=== PATIENT | male | born 1965 | race Caucasian/White ===

== ENCOUNTER 2016-09-22 17:00 | Observation (INO) | payer BC ==
[2016-09-22] MEDS ORDERED: Aspirin Low Dose CHEW TAB* 81 MG PO ONE (18:21)
[2016-09-22 18:31] LABS: Hematocrit 38 % (42-52); Hemoglobin 13.2 g/dl (14.0-18.0); Mean Corpuscular HGB Conc 35 g/dl (31-36); Mean Corpuscular Hemoglobin 35 pg (27-31); Mean Corpuscular Volume 99 fL (80-94); Mean Platelet Volume 8 um3 (7.4-10.4); Red Blood Count 3.82 10^6/ul (4.0-5.4); Red Cell Distribution Width 14 % (10.5-15); White Blood Count 4.5 10^3/ul (3.5-10.8)
[2016-09-22 18:47] LABS: Albumin 4.2 g/dL (3.2-5.2); BUN/Creatinine Ratio 15.6 (8-20); EGFR African American 106.2 (>60); EGFR Non-African American 82.6 (>60); Globulin 2.5 g/dL (2-4); Magnesium 2.2 mg/dL (1.9-2.7); Potassium 3.4 mmol/L (3.5-5.0); Total Bilirubin 0.5 mg/dL (0.2-1.0); Total Protein 6.7 g/dL (6.4-8.9)
--- NOTE | 2016-09-22 19:27 | RAD ---
Indication: Central chest pain since Thursday. Comparison: None. Technique: Upright AP 1918 hours Report: Accounting for superimposed soft tissues and normal bronchovascular markings the lungs and pleural spaces are clear. Negative for pneumothorax. The heart, pulmonary vasculature, and mediastinal contours are unremarkable. IMPRESSION: No evidence for acute intrathoracic disease.
[2016-09-22] MEDS ORDERED: Iohexol 350* (CONTRAST) 500 ML MDV IV ONE (19:28)
--- NOTE | 2016-09-22 20:28 | RAD ---
INDICATION: Chest pain. Pain started Thursday while hiking. COMPARISON: Chest radiograph of the same date. TECHNIQUE: Multidetector CT images were obtained from the lung apices to the upper abdomen with 74 mL Omnipaque 350 IV contrast. Pulmonary angiogram protocol. Multiplanar reformation including with maximum intensity projection. REPORT: Aside from minimal dependent atelectasis the lungs and pleural spaces are clear. Negative for pneumothorax. Negative for thoracic lymphadenopathy. Negative for cardiomegaly or pericardial effusion. Upper normal diameter thoracic aorta. No evidence for dissection of the aorta. No filling defects are identified from the main to the subsegmental pulmonary arteries to indicate presence of a pulmonary embolism. Unremarkable Limited images through the upper abdomen. Negative for suspicious osseous lesions. IMPRESSION: No evidence for pulmonary embolism or other acute intrathoracic disease.
[2016-09-22] MEDS ORDERED: Nitroglycerin TAB 0.4 MG* 0.4 MG TAB SL ONE (21:33)
[2016-09-23] MEDS ORDERED: Acetaminophen TAB* 325 MG PO PRN (00:36)
[2016-09-23] MEDS ORDERED: HYDROmorphone INJ* 1 MG/ML CARPUJECT SYRINGE IV SLOW PU PRN (00:36)
--- NOTE | 2016-09-23 01:17 | HP ---
HISTORY AND PHYSICAL: DATE OF ADMISSION: 09/22/2016. CHIEF COMPLAINT: Chest pain. HISTORY OF PRESENT ILLNESS: The patient is a 51-year-old gentleman who hikes regularly and says he was hiking up in the [place] today. Mid half way through, he started feeling mild chest pain. In the end, he came home early because of it and has still continued until later on that evening when it finally went away and he went to sleep. He woke the next day, and he is feeling fine and started to clean away [place] stuff when the pain came back. It stayed again until today, so he finally became concerned and came to the ER for further evaluation. At its worse, it was 5 to 6/10 in severity. It was initially right- sided, but then went to both sides of his chest and radiates to his back. It was much worse with inspiration with a deep breath. It was a pressure like pain. He had no nausea or vomiting with it. No increased shortness of breath. He had no recent upper respiratory infections. He did not work out or lifted heavy weights prior to this. PAST MEDICAL HISTORY: Significant for ulcerative colitis, hiatal hernia, right knee surgery on both knees, appendectomy, bilateral carpal tunnel, ulnar nerve release, and deviated septum repair. CURRENT MEDICATIONS: Include: 1. Flonase 2 sprays both nares daily. 2. Imuran 100 mg daily. 3. Omeprazole 20 mg twice daily. 4. Colazal 3 tabs twice daily. ALLERGIES: He has an allergy/adverse reaction to MORPHINE, which gives him a headache and LOPERAMIDE. FAMILY HISTORY: His mother is 73, alive and well. Father is alive at 74, had an IA at age 59 and has diabetes, sister at 52, brother at 53, he has ulcerative colitis. Sister at 52 is alive and well. SOCIAL HISTORY: No tobacco or alcohol on the weekends. No recreational drug. 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 he is with 2 children. REVIEW OF SYSTEMS: A 14-point review of systems completed with the patient. All pertinent positives and negatives are in the history of present illness, otherwise it is negative. PHYSICAL EXAMINATION GENERAL: A pleasant gentleman, lying in bed, in no acute distress. VITAL SIGNS: Blood pressure 129/76, pulse ox 96%, respiratory rate 15 breaths per minute, heart rate 64 beats per minute, temperature is 98.3 degrees. HEENT: Normocephalic, atraumatic. Pupils equal, round and reactive to light. Moist mucous membranes. NECK: Supple. No JVD, bruits, palpable thyroid, or lymphadenopathy. CHEST: Clear to auscultation and percussion bilaterally. CARDIOVASCULAR: S1, S2 appreciated. Regular rate and rhythm. ABDOMEN: Positive bowel sounds in all 4 quadrants. Soft, nontender, nondistended. No hepatosplenomegaly. EXTREMITIES: No cyanosis, clubbing, or edema. +2 peripheral pulses bilaterally. NEUROLOGIC: Alert and oriented x3. Moves all extremities. SKIN: No rashes or abnormalities. LABORATORY DATA: White count 4.5, hemoglobin 13.2, hematocrit 38, platelets 159. Sodium is 135, potassium 3.4, chloride 104, CO2 26, BUN 15, creatinine 0.96 , glucose 141. First troponin 0.00, second one is 0.01. Chest x-ray was interpreted by Radiology as no evidence of acute intrathoracic disease. Chest CTA was interpreted by Radiology as no evidence for pulmonary embolism or acute intrathoracic disease. EKG shows sinus bradycardia at 58 beats a minute, normal axis, nonspecific ST-T wave changes. ASSESSMENT AND PLAN: 1. Chest pain, it does not sound cardiac, although he did say that nitroglycerin may have helped in the ER, certainly with his family history, warrants ruling him out and then doing a nuclear stress test if possible. The ER physician felt that he may have heard a murmur. I do not appreciate it, but I will get a transthoracic echo for completeness sake. We will also order a lipid profile. 2. Ulcerative colitis, stable. Continue with current regimen. 3. FEN. NPO after midnight. 4. DVT prophylaxis. Heparin subcu. 5. The patient is a full code. TIME SPENT: Over 75 minutes were spent on this H and P; more than 40 minutes of which is spent in direct [id number] contact with the patient in evaluation , physical exam, counseling, and coordination of care. CC: Malinda Ayers NP* [id number]/CPS #: [id number] MTDD
[2016-09-23] MEDS: Heparin VIAL(*) 5000 UNITS/ML VIAL (FIVE THOUSAND) SUBCUT SCH ×2 (06:02→13:54)
[2016-09-23 06:06] LABS: HDL Cholesterol 40.3 mg/dL
[2016-09-23] MEDS ORDERED: Omeprazole CAP* 20 MG PO SCH (07:30)
[2016-09-23] MEDS ORDERED: PTO: Balsalazide (NF) 750 MG CAP PO SCH (09:00)
[2016-09-23] MEDS ORDERED: azaTHIOprine TAB(*) 50 MG TAB PO SCH (09:00)
[2016-09-23] MEDS ORDERED: Fluticasone NASAL SPRAY 50MCG* 16 gm SPRAY BTL BOTH NARES SCH (09:00)
[2016-09-23 09:49] VITALS: BP 127/83
--- NOTE | 2016-09-23 12:42 | RAD ---
Edited for charges. INDICATION: Chest pain. COMPARISON: There are no prior studies available for comparison. Technique: A single day myocardial perfusion stress study was performed. Initially a resting study was performed. The patient was given an intravenous injection of 10.1 mCi of technetium 99m tetrofosmin and and the heart was imaged in multiple projections. The patient returned later in the day and under the direction of Dr. Ramirez, the patient was exercised to a peak heart rate of 170 beats per minute which was 101% of the maximum predicted heart rate. Subsequently the patient was given intravenous injection of 25.3 mCi of technetium 99m tetrofosmin and the heart was imaged in multiple projections. Images were reconstructed in the axial, sagittal and coronal planes and in a 3- D format. FINDINGS: There appears to be normal wall motion and myocardial thickening. The left ventricular ejection fraction was calculated to be 62%. Review of the images demonstrates mild decreased activity in the inferior wall on both the post pharmacologic stress and resting images which is no longer present on the attenuation corrected images and therefore most consistent with artifact. There is otherwise normal distribution of debris from cervical. IMPRESSION: NO EVIDENCE FOR INFARCT OR ISCHEMIA. ASSESSMENT: Low risk. Based on imaging criteria from ACC/AHA 2002 Guideline Update for the Management of Patients With Chronic Stable Angina Table 23. Noninvasive Risk Stratification. MTDD
--- NOTE | 2016-09-23 13:31 | ED ---
Lupe Barker Michael, scribed for Rogelio Spear MD on 09/22/16 at 1847 . HPI Chest Pain - HPI Summary HPI Summary: 51 y/o male comes to the ED presenting with intermittent episodes of pressure chest pain that started 2 days ago and radiates to his back. The pt reports that he hiked for 9 hours when the CP started. He notes that the CP started as mild and worsened throughout the day. The CP spontaneously alleviated one day ago until he exerted himself and the pain started again. Today, the pt states the CP has been constant and aggravated with deep breathes. He denies dizziness and taking medication for the CP. The PMHx is significant for colitis and hiatal hernia. The FHx is significant for [place]. - History of Current Complaint Chief Complaint: EDChestPainROMI Time Seen by Provider: 09/22/16 18:43 Hx Obtained From: Patient, Medical Records Onset/Duration: Started Days Ago, Still Present Timing: Intermittent Initial Severity: Mild Current Severity: Moderate Pain Intensity: 3 Pain Scale Used: 0-10 Numeric Chest Pain Radiates: Yes Chest Pain Radiates To:: Back Character: Pressure/Squeezing Aggravating Factor(s): Exertion, Deep Breaths Alleviating Factor(s): Spontaneous Resolution Associated Signs and Symptoms: Positive: Chest Pain, Back Pain. Negative: Dizziness - Allergy/Home Medications Allergies/Adverse Reactions: Allergies Allergy/AdvReac Type Severity Reaction Status Date / Time Loperamide [From Imodium] Allergy HIVES, N/V Verified 09/22/16 17:15 Morphine AdvReac Severe SEVERE Verified 09/22/16 17:15 HEADACHE PMH/Surg Hx/FS Hx/Imm Hx Previously Healthy: No - colitis Endocrine/Hematology History: Denies: Hx Diabetes, Hx Thyroid Disease Cardiovascular History: Denies: Hx Hypertension, Hx Pacemaker/ICD, Other Cardiovascular Problems/ Disorders Respiratory History: Reports: Hx Sleep Apnea - SLIGHT Denies: Hx Asthma, Hx Chronic Obstructive Pulmonary Disease (COPD) GI History: Reports: Hx Gastroesophageal Reflux Disease, Hx Hiatal Hernia, Hx Irritable Bowel, Other GI Disorders - ULCERATIVE COLITIS Denies: Hx Ulcer History: Denies: Hx Renal Disease Musculoskeletal History: Denies: Other Musculoskeletal History Sensory History: Reports: Hx Contacts or Glasses - CONTACTS, GLASSES Denies: Hx Hearing Aid Opthamlomology History: Reports: Hx Contacts or Glasses - CONTACTS, GLASSES Neurological History: Denies: Other Neuro Impairments/Disorders Psychiatric History: Denies: Hx Panic Disorder - Surgical History Surgery Procedure, Year, and Place: NERVE RELEASE BOTH ELBOWS, 2001, [place] CARPAL TUNNEL RELEASE BILATERALLY, 1999, [facility] RIGHT KNEE- ARTHROSCOPY-1982 TONSILLECTOMY , RIGHT KNEE, [facility] APPENDECTOMY, 2006, [facility]. DEVIATED SEPTUM 2013, [facility] Hx Anesthesia Reactions: Yes - NAUSEA WITH GENERAL Infectious Disease History: No Infectious Disease History: Denies: Hx Hepatitis, Hx Human Immunodeficiency Virus (HIV), History Other Infectious Disease, Traveled Outside the [place] in Last 30 Days - Family History Known Family History: Positive: Cardiac Disease - [place], Diabetes Family History: No family malignant hyperthermia or anesthesia reaction - Social History Occupation: Employed Full-time Lives: With Family Alcohol Use: Occasionally Alcohol Amount: 3-4 PER WEEK Substance Use Type: Reports: None Smoking Status (MU): Never Smoked Tobacco Have You Smoked in the Last Year: No Review of Systems Negative: Fever Positive: Chest Pain Positive: Other - back pain All Other Systems Reviewed And Are Negative: Yes Physical Exam Triage Information Reviewed: Yes Vital Signs On Initial Exam: Initial Vitals Temp Pulse Resp BP Pulse Ox 98.3 F 68 18 147/93 100 09/22/16 17:12 09/22/16 17:12 09/22/16 17:12 09/22/16 17:12 09/22/16 17:12 Vital Signs Reviewed: Yes Appearance: Positive: Well-Appearing, No Pain Distress Skin: Positive: Warm, Skin Color Reflects Adequate Perfusion, Dry Head/Face: Positive: Normal Head/Face Inspection Eyes: Positive: Normal ENT: Positive: Normal ENT inspection Neck: Positive: Supple, Nontender Respiratory/Lung Sounds: Positive: Clear to Auscultation, Breath Sounds Present Cardiovascular: Positive: Murmur - systolic ejection murmur that does not radiate to the carotids Abdomen Description: Positive: Nontender, Soft Bowel Sounds: Positive: Present Musculoskeletal: Positive: Normal Neurological: Positive: Normal Psychiatric: Positive: Normal, Affect/Mood Appropriate Diagnostics - Vital Signs Vital Signs Temp Pulse Resp BP Pulse Ox 09/22/16 18:30 73 20 157/75 97 09/22/16 18:06 16 137/84 09/22/16 18:00 11 09/22/16 17:12 98.3 F 68 18 147/93 100 - Laboratory Lab Results: Lab Results 09/22/16 09/22/16 Range/Units 18:04 18:04 WBC 4.5 (3.5-10.8) 10^3/ul RBC 3.82 L (4.0-5.4) 10^6/ul Hgb 13.2 L (14.0-18.0) g/dl Hct 38 L (42-52) % MCV 99 H (80-94) fL MCH 35 H (27-31) pg MCHC 35 (31-36) g/dl RDW 14 (10.5-15) % Plt Count 159 (150-450) 10^3/ul MPV 8 (7.4-10.4) um3 Neut % (Auto) 69.3 (38-83) % Lymph % (Auto) 21.6 L (25-47) % Craven % (Auto) 6.2 (1-9) % Eos % (Auto) 2.1 (0-6) % Baso % (Auto) 0.8 (0-2) % Absolute Neuts (auto) 3.1 (1.5-7.7) 10^3/ul Absolute Lymphs (auto) 1.0 (1.0-4.8) 10^3/ul Absolute Monos (auto) 0.3 (0-0.8) 10^3/ul Absolute Eos (auto) 0.1 (0-0.6) 10^3/ul Absolute Basos (auto) 0 (0-0.2) 10^3/ul Absolute Nucleated RBC 0.01 10^3/ul Nucleated RBC % 0.2 Lactic Acid 1.0 (0.5-2.0) mmol/L Result Diagrams: 09/22/16 18:04 09/22/16 18:04 Lab Statement: Any lab studies that have been ordered have been reviewed, and results considered in the medical decision making process. - Radiology CXR Xray Interpretation: No Acute Changes Radiology Interpretation Completed By: Radiologist - CT CTA Chest/Thorax CT Interpretation: No Acute Changes CT Interpretation Completed By: Radiologist - EKG EK EKG Rhythm: Sinus Rhythm - 61 bpm EKG Interpretation: no specific changes. lateral depression. EK EKG Interpretation: right sided precordial leads-negative for posterior [place] Chest Pain Course/Dx - Course Course Of Treatment: Thaddeus Patel presented with a C/O pleuritic chest pressure most of the day today with no He climbed three peakssymptoms. He had a similar pain two days ago which came on when he was hiking in the [place]. He climbed three peaks on Thursday including [place] in subzero weather. On ecg there was a suggestion of ST depression laterally and ST elevation in V1. Right sided leads were negative. He had a holosystolic murmur of which he was unaware. CTA was negative for PE (he has a hx of ulcerative colitis) or dissection. He has a positive family history of [place]. His EDACS score puts him at low risk for [place] but I am concerned secondary to his subtle ecg changes and new VALARIE. His pain was relieved completely here with a single NTG. - Diagnoses Provider Diagnoses: Chest pain - Provider Notifications Discussed Care Of Patient With: Dr. Oden - 2100, Dr. Kohler - 2104 Discharge - Discharge Plan Condition: Stable Disposition: ADMITTED TO [facility] Discharge Disposition Comment: Dr. Kohler accepts the pt as an admission The documentation as recorded by the Lupe castillo Michael accurately reflects the service I personally performed and the decisions made by me, Rogelio Spear MD.
--- NOTE | 2016-09-23 15:43 | ECHO ---
Patient: ALTA ORDONEZ [facility] Rec#: [id number] : 1965 Date: 09/23/2016 Age: 51y Height: 175 cm / 68.9 in Weight: 85 kg / 187.3 lbs Sex: M BSA: 2.01 Room#: 432 Admit Date#: 09/22/2016 Type: Inpatient Referring: Mateus Kohler MD Reading: Peter Brooks MD Rug Hooker: Colin Matthews RDCS Transthoracic Echocardiogram Indication: Murmur BP: 127/77 HR: 54 Rhythm: Heart Block Findings History: Chest,pain Technical Comments: The study quality is fair. Off axis images are noted making measurements unreliable Left Ventricle: The left ventricular chamber size is normal. Global left ventricular wall motion and contractility are within normal limits. There is normal left ventricular systolic function. The estimated ejection fraction is 55-60%. There is no consistent Doppler evidence of clinically significant diastolic dysfunction. Left Atrium: The left atrial chamber size is normal. Right Ventricle: The right ventricular cavity size is normal. The right ventricular global systolic function is normal. Right Atrium: The right atrial cavity size is normal. Aortic Valve: The aortic valve is trileaflet. There is no evidence of aortic regurgitation. There is no evidence of aortic stenosis. Mitral Valve: The mitral valve leaflets appear normal. There is no evidence of mitral regurgitation. There is no evidence of mitral stenosis. Tricuspid Valve: The tricuspid valve appears normal in structure and function. There is trace tricuspid regurgitation. No pulmonary hypertension is noted. Pulmonic Valve: The pulmonic valve appears normal. There is a trace pulmonic regurgitation. There is no pulmonic stenosis. Pericardium: There is no pericardial effusion. Aorta: There is mild dilatation of the ascending aorta. There is no dilatation of the aortic arch. There is mild dilatation of the aortic root. Pulmonary Artery: The main pulmonary artery appears normal. Venous: The inferior vena cava appears normal in size. There is a greater than 50% respiratory change in the inferior vena cava dimension. Conclusions The study quality is fair. Off axis images are noted making measurements unreliable Global left ventricular wall motion and contractility are within normal limits. There is normal left ventricular systolic function. The estimated ejection fraction is 55-60%. No significant valvular disease: There is trace tricuspid regurgitation. There is a trace pulmonic regurgitation. There is mild dilatation of the ascending aorta. There is mild dilatation of the aortic root. No reports of prior studies offered for comparison. Measurements Name Value Normal Range RVIDd (AP) 2D 2.1 cm (0.9 - 2.6) RVDdMajor (2D) 3.3 cm (2.2 - 4.4) RAd ISD 4CH 5.5 cm (3.4 - 4.9) RA (A4C)W 3.2 cm (2.9 - 4.6) IVSd (2D) 0.8 cm (0.6 - 1) LVPWd (2D) 1.2 cm (0.6 - 1) LVIDd (2D) 4.9 cm (3.6 - 5.4) LVIDs (2D) 3.3 cm - Aortic Annulus 1.9 cm (1.4 - 2.6) Ao root diameter (2D) 4 cm (2.1 - 3.5) Ascending Ao 4 cm (2.1 - 3.4) Aortic arch 2.5 cm (1.8 - 3.4) LA dimension (AP) 2D 2.8 cm (2.3 - 3.8) LAd ISD 4CH 5.3 cm (2.9 - 5.3) LA ISD 4CH W 3 cm (2.5 - 4.5) Name Value Normal Range LA ESV SP 4CH (A/L) 35 ml - LA ESV SP 2CH (A/L) 63 ml - LA ESV BP (A/L) 48 ml - LA ESV BP (A/L) index 23.81 ml/m2 - LA ESV SP 4CH (MOD) 35 ml - LA ESV SP 2CH (MOD) 59 ml - Name Value Normal Range MV E-wave Vmax 0.62 m/sec - MV deceleration time 123.98 msec - MV A-wave Vmax 0.5 m/sec - MV E:A ratio 1.24 ratio - Name Value Normal Range AV VTI 33.7 cm - LVOT diameter 2.24 cm - LVOT Vmax 1.13 m/sec - LVOT VTI 28.02 cm - LVOT peak gradient 5.07 mmHg - LVOT mean gradient 3.08 mmHg - SV LVOT 110.42 ml - Name Value Normal Range TR Vmax 1.7 m/sec - IVC diameter 2.1 cm - Name Value Normal Range PV Vmax 0.9 m/sec - PV peak gradient 3.22 mmHg -
--- NOTE | 2016-09-24 01:51 | DS ---
DISCHARGE SUMMARY: DATE OF ADMISSION: 09/23/16 DATE OF DISCHARGE: 09/23/16 PRIMARY CARE PROVIDER: Malinda Ayers NP DISCHARGE DIAGNOSIS: Pleuritic chest pain with negative CT angiogram of the chest for pulmonary embolism. The patient had cardiac stress test documented on 09/23/16 with the treadmill part showing "[address] depression in leads V3 to V5 at peak exercise, resolving by 2 minutes into recovery." The patient also had nuclear images that showed low risk and has showed no evidence for infarct or ischemia. LABORATORY DATA AND STUDIES: Performed during the hospital stay included troponins that were 0 throughout the patient's hospital stay. The patient's lipid profile showed triglycerides of 55, cholesterol total of 153, LDL of 102 and HDL of 40. MEDICATIONS AT DISCHARGE: Unchanged from admission and that includes: 1. Balsalazide 750 mg capsules 3 capsules p.o. b.i.d. 2. Fluticasone nasal spray 2 sprays both nostrils daily. 3. Omeprazole 20 mg b.i.d. 4. Imuran [address] angiogram obtained on 09/22/16, impression: "No evidence of pulmonary embolus or other acute intrathoracic disease." Nuclear medicine cardiac stress test obtained on 09/23/16, impression: "Review of the images demonstrates mild decreased activity in the inferior wall of both these post pharmacologic stress and resting images which is no longer present in the attenuation corrected images and therefore most consistent with an artifact. It is otherwise normal in distribution of the radiopharmaceutical. The EF was noted to be 62%. There was no evidence for infarct or ischemia." Once again, the patient's EKG portion of the treadmill stress test showed [address] depression in leads V3 to V5 at peak exercise resolving 2 minutes into recovery. I discussed the case with Dr. Ramirez, the change consultant, who performed the stress test. The patient at this point is low risk for cardiac ischemia according to the nuclear images and overall, the stress testing is negative. He is to free to be discharged to follow up with his primary care provider with scheduled appointment on 09/26/16. PHYSICAL EXAMINATION AT THE TIME OF DISCHARGE: Blood pressure of 127/83, heart rate of 54 and regular, respiratory rate 16, oxygen saturation 99% on room air, temperature 97.9. General: The patient is a very pleasant 51-year-old male, who is in no acute distress, alert, awake, oriented x3. HEENT: Head atraumatic. Eyes: Pupils equal, reactive to light and accommodation. Oropharynx clear. Mucosa moist. Neck: Supple. No JVD, bruits bilaterally. Cardiovascular: Regular rate and rhythm. No murmur. Respiratory: Clear to auscultation bilaterally. Abdomen: Soft, nontender. Bowel sounds present in all 4 quadrants. Extremities: There is no edema. Pulses +2 bilaterally. No clubbing or cyanosis. HOSPITALIZATION COURSE: Thaddeus Patel is a 51-year-old male with a history of ulcerative colitis who is very fit and he hikes 3 times a week. After a whole day of hiking on 09/21/16, he started experiencing pleuritic chest pain localizing between his shoulder blades radiating to the front. It was worse with deep breathing and with movement. He went to bed and in the morning the pain resolved, but recurred at the end of the day again and at this time, the patient presented to the ED for evaluation. His troponins were unremarkable. His CT angiogram of the chest showed no PE and no pulmonary abnormalities. His EKG showed sinus bradycardia and flattening of T-waves in lateral leads. Subsequent stress test was performed and noted as above. Despite that, the patient did have some ST depressions in the lateral leads with peak exercise. He had been asymptomatic during the exercise stress test and there were no nuclear images identifying any ischemia. At this point, the recommendation is for the patient to follow up with his primary care provider as mentioned above. Please note this is a short summary of the patient's hospital stay. Please refer to further medical records for details. CC: Malinda Ayers NP; Dr. Ramirez * [id number]/CPS #: [id number]
== END 2016-09-23 14:57 | disposition home or self-care (01) ==
LOC: ED 17:00 → MEDTELE 23:54
PROVIDERS: ADMIT Internal Medicine; ATTEND Internal Medicine
DX: R07.81 Pleurodynia (principal); R07.9 Chest pain, unspecified; K51.90 Ulcerative colitis, unspecified, without complications; R00.1 Bradycardia, unspecified; I51.7 Cardiomegaly; Z79.899 Other long term (current) drug therapy; Z88.5 Allergy status to narcotic agent; Z88.8 Allergy status to other drugs, medicaments and biological substances
CPT/HCPCS: 36415; 71010; 71275; 78452; 80053; 80061; 83605; 83735; 84484; 85025; 93005; 93017; 93306; 96374; 99284; A9270-GY; A9502; G0378; J1170; J1644; J7500; Q9967

== ENCOUNTER 2018-03-02 09:46 | Day surgery (SDC) | payer BC ==
--- NOTE | 2018-02-16 07:50 | HP ---
CC: Dr. Ramila Arambula [place]; ZAHIDA Ortiz * ADMISSION HISTORY AND PHYSICAL: DATE OF ADMISSION: 03/02/18 ATTENDING SURGEON: Dr. Thaddeus Courtney.* (DICTATED BY MAULIK BRAVO) CHIEF COMPLAINT: Hiatal hernia with reflux. HISTORY OF PRESENT ILLNESS: This is a 52-year-old male, who has had a history of reflux disease for at least 10 to 15 years. He relates burning pain in the sternal area sometimes coming up into the throat, particularly after ingestion of spicy foods and/or after alcohol. Symptoms are also worse if he is supine after eating certain foods. He does have relief from various antacids and/or acid blocking medications. He did have an episode of hematemesis some years ago. He did undergo EGD in 2009, which showed only erosive esophagitis. He also reports occasional dysphagia usually for large tablets. He denies any constitutional symptoms, i.e., fever, chills, weight loss, etc. He also has a baseline history of ulcerative colitis. He recently underwent EGD and colonoscopy with Dr. Ramila Arambula on 01/28/18. The EGD showed a small hiatal hernia with normal esophagus and stomach. The colonoscopy likewise was normal with a recommended 10-year followup. The patient met with Dr. Courtney on . Dr. Courtney has discussed with him the indications, risks, benefits, and alternatives of surgery, and he would like to proceed as scheduled with laparoscopic repair of hiatal hernia with fundoplication. PAST MEDICAL HISTORY: Hiatal hernia with reflux, seasonal allergies, insomnia, possible mild sleep apnea based on a study 4 to 5 years ago (untreated). PAST SURGICAL HISTORY: Previous surgeries include arthroscopic right knee surgery x2, bilateral carpal tunnel release, bilateral ulnar nerve decompression , laparoscopic appendectomy in 2008 (nonruptured appendicitis), nasal septoplasty, tonsillectomy. No reported surgical problems, though he does often experience postoperative nausea and vomiting. CURRENT MEDICATIONS: 1. Omeprazole 20 mg b.i.d. 2. Imuran 50 mg 2 tablets q. day. 3. Flonase 2 sprays each nostril once daily. 4. Claritin 10 mg once daily p.r.n. 5. Colazal 750 mg 3 capsules b.i.d. 6. Clonazepam 1 mg one-half tablet at h.s. p.r.n. for insomnia (uses infrequently). DRUG ALLERGIES: IMODIUM (rash), MORPHINE (headache) (he does tolerate other narcotics). He avoids ibuprofen secondary to association with GI bleeding. FAMILY HISTORY: Negative for anesthesia problems, bleeding, or clotting disorders. SOCIAL HISTORY: The patient is recently . 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 He denies use of tobacco. He drinks between 3 and 9 drinks per week. He denies other recreational drug use. REVIEW OF SYSTEMS: General: No recent constitutional symptoms. Eyes: No recent changes noted. Ears, Nose, and Throat: No problems reported. Cardiovascular: He did have an episode of chest pain in September of 2016 while [place]. He did undergo workup at [facility] including an echocardiogram that showed normal left ventricular function and no significant valvular disease. He was noted to have a mildly dilated aortic root. Respiratory: No history of asthma, chronic cough, or shortness of breath. GI: As above per HPI. Also, frequent loose stools related to his ulcerative colitis with occasional blood per rectum. Colonoscopy as noted above. : No problems reported. Endocrine: No diabetes or thyroid dysfunction. Remaining review of systems is negative. PHYSICAL EXAMINATION GENERAL: Well-nourished, well-developed male, in no acute distress. VITAL SIGNS: Height 5 feet 9 inches, weight 185 pounds by history. Temperature is 97.7, blood pressure 124/86, pulse 66, respirations 18. HEENT: Pupils are equal and round, reactive. EOMs intact. No conjunctival pallor. Oropharynx: Teeth in good repair. No intraoral lesions. NECK: No lymphadenopathy, thyromegaly, or masses. No carotid bruits. LUNGS: Clear to auscultation. No rales or wheezes. HEART: There is a moderate end-systolic murmur heard best at the right sternal border without radiation. No gallops or rubs. Rhythm regular. ABDOMEN: Soft, nontender to palpation. No palpable masses or organomegaly. GENITALIA: Not done. RECTAL: Not done. BACK: No spinous process or CVA tenderness. EXTREMITIES: No edema. NEUROLOGICAL: Grossly intact. SKIN: Warm and dry. No suspicious rashes or lesions noted. IMPRESSION: Hiatal hernia. PLAN: Laparoscopic repair of hiatal hernia with fundoplication. MAULIK BRAVO [id number]/[facility] #: [id number] [facility]ITAL[facility]
[~2018-03-02 09:46] MED LIST: Buffered Lidocaine 0.9% SYRIN* 5 ML/SYR SYRINGE INTRADERM ONE; Metoclopramide TAB* 10 MG PO ONE; Sodium Citrate/Citric Acid* 15 ML UDC PO ONE
[2018-03-02] MEDS ORDERED: Sodium Citrate/Citric Acid* 15 ML UDC ONE (10:28)
[2018-03-02] MEDS ORDERED: Metoclopramide TAB* 10 MG ONE (10:28)
[2018-03-02] MEDS ORDERED: ceFAZolin 2 GM PREMIX (*) 2 GM/50 ML BAG IVPB ONE (10:28)
[2018-03-02] MEDS ORDERED: Lidocaine 0.5%* 50 ML SDV ONE (11:15)
[2018-03-02] MEDS ORDERED: Bupivacaine 0.5% SDV PF* 30ML VIAL ONE (11:17)
[2018-03-02] MEDS ORDERED: Scopolamine 1.5 mg* PATCH ONE (11:24)
[2018-03-02] MEDS ORDERED: fentaNYL* 50 MCG/ML 2 ML VIAL (100 MCG VIAL) ONE ×3 (11:35→14:08)
[2018-03-02] MEDS ORDERED: Dexamethasone IV* 4 MG/ML 1 ML (4 MG) ONE (11:35)
[2018-03-02] MEDS ORDERED: Lidocaine 2% PF * 5 ML VIAL ONE (11:35)
[2018-03-02] MEDS ORDERED: Rocuronium* 10 MG/ML VIAL ONE (11:35)
[2018-03-02] MEDS ORDERED: Propofol* 10 MG/ML 20 ML BTL IV PUSH ONE (11:35)
[2018-03-02] MEDS ORDERED: Acetaminophen TAB* 325 MG PO PRN (12:26)
[2018-03-02] MEDS ORDERED: Ondansetron SYRINGE* 4 MG/2 ML SYRINGE (from 40mg/20ml vial) IV PRN (12:26)
[2018-03-02] MEDS ORDERED: DiMENhydriNATE IV* 50 MG/ML VIAL IV PUSH PRN (12:26)
[2018-03-02] MEDS ORDERED: Ketorolac INJ* 30 MG/ML 1 ML VIAL IV PRN (12:26)
[2018-03-02] MEDS ORDERED: Naloxone* 0.4 MG/ML 1 ML VIAL IV PRN (12:26)
[2018-03-02] MEDS ORDERED: Ketorolac INJ* 30 MG/ML 1 ML VIAL ONE (14:02)
--- NOTE | 2018-03-02 14:10 | OP ---
Operative Report - Blank - Operative Report Date of Operation: 03/02/18 Note: Brief Operative Note Preop Dx: Hiatal Hernia Postop Dx: same Procedure: Laparoscopic repair hiatal hernia w/ Yuan fundoplication Anesthesia: GET Surgeon: Roz Clothing Designer: MAULIK Velazquez Fluids: 1200 ml RL EBL: < 50 ml Specimen: none Drains: none Findings: dictated
[2018-03-02] MEDS: fentaNYL* 50 MCG/ML 2 ML VIAL (100 MCG VIAL) IV PRN ×2 (14:11→14:39)
[2018-03-02] MEDS ORDERED: oxyCODONE TAB* 5 MG TAB ONE ×2 (14:51→15:34)
[2018-03-02] MEDS: oxyCODONE TAB* 5 MG TAB PO PRN ×2 (14:52→15:35)
--- NOTE | 2018-03-02 15:24 | RAD ---
INDICATION: Short of breath COMPARISON: Chest x-ray September 22, 2016 TECHNIQUE: An AP portable view obtained at 1453 hours is submitted. FINDINGS: Bones/Soft Tissues: There are no acute bony findings. Cardiomediastinal: The cardiomediastinal silhouette is normal. Lungs: There is mild linear change left lung base most consistent with atelectasis. There is minimal right basilar atelectasis. There is no pneumothorax. Pleura: There are no pleural effusions. Other: None IMPRESSION: MILD BASILAR ATELECTASIS
[2018-03-02 17:20] VITALS: BP 141/89
--- NOTE | 2018-03-03 08:08 | OP ---
CC: Ramila Arambula MD; Malinda Ayers NP * DATE OF OPERATION: 03/02/18 - [facility] DATE OF : 65 SURGEON: Thaddeus Courtney MD FINANCIAL ADVOCATE: MAULIK Quiñones ANESTHESIOLOGIST: Natan Moreno MD ANESTHESIA: General endotracheal. PRE-OP DIAGNOSIS: Hiatal hernia with gastroesophageal reflux. POST-OP DIAGNOSIS: Hiatal hernia with gastroesophageal reflux. OPERATIVE PROCEDURE: Laparoscopic repair of hiatal hernia with Yuan fundoplication. ESTIMATED BLOOD LOSS: Minimal. IV FLUIDS: Crystalloids. SPECIMENS: None. DRAINS: None. COMPLICATIONS: None. COUNTS: Instrument, needle, and sponge counts correct. DESCRIPTION OF PROCEDURE: The patient was brought to the operating room, placed on the table supine. Sequential compression devices were placed on both extremities. General anesthesia was administered. He was positioned and padded appropriately. He received appropriate intravenous antibiotics and time-out was performed. Local anesthetic was infiltrated into the skin and soft tissue prior to making each incision. Entry to the abdomen was through a transumbilical vertical incision created to accommodate a 5-mm optical trocar. After accessing the peritoneal cavity with 5-mm trocar, a laparoscope was introduced and under direct visualization, 5-mm trocars were placed in the right upper quadrant and left upper quadrant laterally. A 12-mm bladed trocar was placed through the left upper quadrant. A Homer liver retractor was placed percutaneously in the subxiphoid position and used to elevate the left lobe of the liver. Gastric anatomy revealed the patient had a hiatal hernia, moderately sized. The dissection proceeded with entering the pars flaccida using the LigaSure. The phrenoesophageal ligament was opened and the mediastinum was entered. The dissection continued anteriorly from right to left and then dissection proceeded posteriorly opening up the retroesophageal window and dissection proceeded on the left to identify left mandy of the diaphragm. After doing so, a quarter-inch [place] drain was placed through a retroesophageal window and secured with an Endoloop. The circumferential dissection of the esophagus was performed to create a 5-cm length of intraabdominal esophagus. The vagus nerves were identified and preserved. Again, the LigaSure was used for this dissection. After completing the dissection, the hiatal hernia defect was closed over a 58-Hebrew bougie with 2 sutures of 0 Ethibond. Then, a 360-degree Yuan-type fundoplication was performed again over a 58-Hebrew bougie with 3 sutures of 0 Ethibond inferior most suture taking purchase of the esophageal wall as well. The wrap was made quite short over a 2-cm length. Subsequently, the bougie was removed, hemostasis was assured. The port was removed under direct visualization, carbon dioxide was released. Homer liver retractor was removed without difficulty. The wounds were closed with 4-0 Monocryl to approximate the skin and Steri-Strips were applied. The patient tolerated this procedure well, was then extubated and transferred to Recovery in stable condition. [id number]/[facility] #: [id number] MTDD
== END 2018-03-02 18:03 | disposition home or self-care (01) ==
LOC: OR 09:46
PROVIDERS: ATTEND Surgery
DX: K44.9 Diaphragmatic hernia without obstruction or gangrene (principal); K21.9 Gastro-esophageal reflux disease without esophagitis; J30.2 Other seasonal allergic rhinitis; K51.90 Ulcerative colitis, unspecified, without complications
CPT/HCPCS: 71045; A9270-GY; J0690; J1100; J1885; J2704; J3010

== ENCOUNTER 2019-02-07 16:13 | Emergency (ER) | payer BC ==
[2019-02-07 16:34] VITALS: BP 120/84
--- NOTE | 2019-02-07 17:24 | ED ---
Skin Complaint - HPI Summary HPI Summary: 53 yr old with two tick bites, one to the right posterior thigh and one to the left posterior chest wall. The patient states he removed two engorged ticks with help of significant other. He has soreness to these areas with minimal redness. No other complaints. - History of Current Complaint Chief Complaint: UCSkin Time Seen by Provider: 02/07/19 16:53 Stated Complaint: TICK BITE Pain Intensity: 0 - Additional Pertinent History Primary Care Physician: ZORAN - Allergy/Home Medications Allergies/Adverse Reactions: Allergies Allergy/AdvReac Type Severity Reaction Status Date / Time loperamide Allergy Severe Hives Verified 02/07/19 16:34 morphine Allergy Severe Headache Verified 02/07/19 16:34 ibuprofen AdvReac GI Upset Verified 02/07/19 16:34 Seasonal Allergies Allergy Runny Nose Uncoded 02/07/19 16:34 Home Medications: Home Medications Loratadine [Claritin] 1 tab PO DAILY 02/07/19 [History Confirmed 02/07/19] PMH/Surg Hx/FS Hx/Imm Hx Endocrine/Hematology History: Denies: Hx Diabetes, Hx Thyroid Disease Cardiovascular History: Reports: Hx Angina Denies: Hx Coronary Artery Disease, Hx Hypercholesterolemia, Hx Hypertension , Hx Myocardial Infarction, Hx Pacemaker/ICD, Hx Valvular Heart Disease, Other Cardiovascular Problems/Disorders Respiratory History: Reports: Hx Sleep Apnea - Diagnosed with mild sleep apnea Denies: Hx Asthma, Hx Chronic Obstructive Pulmonary Disease (COPD), Other Respiratory Problems/Disorders GI History: Reports: Hx Gastroesophageal Reflux Disease - on medication, Hx Hiatal Hernia, Hx Irritable Bowel, Other GI Disorders - ULCERATIVE COLITIS, history of erosive esophagitis Denies: Hx Ulcer History: Denies: Hx Renal Disease, Other Problems/Disorders Musculoskeletal History: Reports: Hx Arthritis - Right knee, Other Musculoskeletal History - bilateral carpal tunnel Denies: Hx Rheumatoid Arthritis, Hx Osteoporosis Sensory History: Reports: Hx Contacts or Glasses - CONTACTS & GLASSES Denies: Hx Hearing Aid Opthamlomology History: Reports: Hx Contacts or Glasses - CONTACTS & GLASSES Neurological History: Reports: Other Neuro Impairments/Disorders - bilateral ulnar nerve decompression Psychiatric History: Denies: Hx Panic Disorder - Surgical History Surgery Procedure, Year, and Place: NERVE RELEASE BOTH ELBOWS, 2001, . CARPAL TUNNEL RELEASE BILATERALLY, 1999, . RIGHT KNEE- ARTHROSCOPY-1982. TONSILLECTOMY , RIGHT KNEE, [facility]. APPENDECTOMY, 2006, [facility]. DEVIATED SEPTUM 2013 , [facility] Hx Anesthesia Reactions: Yes - NAUSEA WITH GENERAL ANESTHESIA - Immunization History Date of Influenza Vaccine: 2015 Infectious Disease History: No Infectious Disease History: Denies: Hx Hepatitis, Hx Human Immunodeficiency Virus (HIV), History Other Infectious Disease, Traveled Outside the [place] in Last 30 Days - Family History Known Family History: Positive: Cardiac Disease - MS, Diabetes Family History: No family malignant hyperthermia or anesthesia reaction - Social History Alcohol Use: Occasionally Alcohol Amount: 3-4 PER WEEK Substance Use Type: Reports: None Smoking Status (MU): Never Smoked Tobacco Have You Smoked in the Last Year: No Review of Systems Constitutional: Negative Positive: Other - tick bites left posterior chest and right posterior thigh All Other Systems Reviewed And Are Negative: Yes Physical Exam Triage Information Reviewed: Yes Vital Signs On Initial Exam: Initial Vitals Temp Pulse Resp BP Pulse Ox 98.8 F 53 18 120/84 98 02/07/19 16:30 02/07/19 16:30 02/07/19 16:30 02/07/19 16:30 02/07/19 16:30 Vital Signs Reviewed: Yes Appearance: Positive: Well-Appearing, No Pain Distress Skin: Positive: Warm, Skin Color Reflects Adequate Perfusion, Other - there are two tick bites one to right posterior thigh above the popliteal fossa. A scab is present where the bite is and no obvious FB seen. There is about one centimeter of redness. No bulls eye. There is a tick bite to the left posterior chest wall, no FB and no bulls eye. There is about 1 cm of erythema. Head/Face: Positive: Normal Head/Face Inspection Eyes: Positive: EOMI, JASON ENT: Positive: Normal ENT inspection Neck: Positive: Nontender Respiratory/Lung Sounds: Positive: Clear to Auscultation, Breath Sounds Present Cardiovascular: Positive: RRR. Negative: Murmur Abdomen Description: Negative: Distended Musculoskeletal: Positive: Strength/ROM Intact Neurological: Positive: Sensory/Motor Intact, Alert, Oriented to Person Place, Time, CN Intact II-III Psychiatric: Positive: Normal Diagnostics - Vital Signs Vital Signs Temp Pulse Resp BP Pulse Ox 02/07/19 16:30 98.8 F 53 18 120/84 98 - Laboratory Lab Statement: Any lab studies that have been ordered have been reviewed, and results considered in the medical decision making process. Course/Dx - Course Course Of Treatment: 53 yr old with two tick bites. No bulls eye. There is some surrounding erythema to each bite. Plan DC home, and doxy script given. - Diagnoses Provider Diagnoses: Tick bites Discharge - Sign-Out/Discharge Documenting (check all that apply): Patient Departure All imaging exams completed and their final reports reviewed: No Studies - Discharge Plan Condition: Good Disposition: HOME Prescriptions: Doxycycline Monohydrate 100 mg PO BID #28 capsule Patient Education Materials: Tick Bite (ED) Referrals: Malinda Ayers NP [Primary Care Provider] - 2 Days - Billing Disposition and Condition Condition: GOOD Disposition: Home
== END 2019-02-07 17:26 | disposition home or self-care (01) ==
LOC: UCEAST 16:13
DX: S70.361A Insect bite (nonvenomous), right thigh, initial encounter (principal); S20.362A Insect bite (nonvenomous) of left front wall of thorax, initial encounter; W57.XXXA Bitten or stung by nonvenomous insect and other nonvenomous arthropods, initial encounter; Y92.9 Unspecified place or not applicable; K21.9 Gastro-esophageal reflux disease without esophagitis; Z88.6 Allergy status to analgesic agent; Z88.5 Allergy status to narcotic agent; Z88.8 Allergy status to other drugs, medicaments and biological substances
CPT/HCPCS: 99212; G0463

== ENCOUNTER 2019-08-13 20:03 | Emergency (ER) | payer BC ==
[2019-08-13 20:17] VITALS: BP 140/99
--- OUTSIDE RECORDS SUMMARY | 2019-08-13 20:45 | XMS REPORT | Continuity of Care Document ---
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 Onset: 11/27/2010 Obstructive sleep apnea syndrome Regina Brown DNP, RN, TRACKMOBILE OPERATOR-BC Onset: Note: Mild. HST 04/13/19: AHI 10/hour, jacinto oxygen 85% (<90% 0.5 min) Social History Type Date Description Comments Sex Unknown ETOH Use Drinks Alcoholic on weekends - beer Beverages Occasionally and drinks, 6 - 9 drinks per weekend Tobacco Use Start: Unknown Patient has never smoked Recreational Drug Use Never Used Drugs Smoking Status Reviewed: 06/16/19 Patient has never smoked Exercise Type/Frequency Exercises regularly Weight lifting, running, hikes Allergies, Adverse Reactions, Alerts Active Allergies Reaction Severity Comments Date Imodium RASH & NAUSEA 10/23/2009 Morphine headache 02/15/2018 Medications Active Medications SIG Qnty Indications Ordering Date Provider Mandibular fabricate oral 1units G47.33 Regina Brown, 06/16/2019 Advancement Device appliance GILBERT FIGUEROA, TRACKMOBILE OPERATOR-BC /mandibular Device advancement device for sleep apnea with needed adjustments. g47.33 Fluticasone Instill 2 Sprays 16units Malinda Varn, 11/26/2018 Propionate Into Each Nostril N.P. Once Every Day 50mcg/Act Suspension Balsalazide Take Three Capsules 180caps K51.90 Malinda Varn, 08/29/2018 Disodium By Mouth Twice A N.P. 750mg Day Capsules Clonazepam 1 by mouth as 30tabs F41.9 Malinda Ayers, 10/16/2016 1mg needed for sleep N.P. Tablets Claritin 1 tablet daily qd 30caps Malinda Ayers, 10mg (seasonal) N.P. Capsules Immunizations CPT Code Status Date Vaccine Reaction Lot # [id number] Given 07/03/2017 Influenza Virus Vaccine, Quadrivalent, Split, Preservative Free [id number] Given 08/05/2016 Measles Mumps And Rubella no immediate reaction [id number] MMR noted ... [id number] Given 06/23/2016 Measles Mumps And Rubella no reaction noted .. [id number] MMR [id number] Given 02/22/2014 Tdap - [id number] Tetanus/Diptheria/Acellular Pertussis 39941 Given 08/01/2009 Influenza Virus Vaccine, Pandemic Formulation [id number] Given 08/01/2009 Administration Swine Flu Shot Vital Signs Date Vital Result Comment 06/16/2019 8:21am Height 68.75 inches 5'8.75" Weight 191.50 lb Heart Rate 64 /min BP Systolic Sitting 136 mmHg Lue reg cuff BP Diastolic Sitting 86 mmHg Lue reg cuff Respiratory Rate 16 /min O2 % BldC Oximetry 96 % On Ra BMI (Body Mass Index) 28.5 kg/m2 04/27/2019 10:56am Height 68.75 inches 5'8.75" Weight 190.38 lb Heart Rate 60 /min BP Systolic Sitting 146 mmHg Lue reg cuff BP Diastolic Sitting 100 mmHg Lue reg cuff BP Systolic Recheck 120 mmHg Lue reg cuff BP Diastolic Recheck 84 mmHg Lue reg cuff Respiratory Rate 20 /min O2 % BldC Oximetry 97 % On Ra BMI (Body Mass Index) 28.3 kg/m2 Results Test Date Facility Test Result H/L Range Note CBC Auto 12/16/2018 [facility] White Blood 4.3 10^3/uL Normal 3.5-10.[address] [place] [address] [phone] Red Blood Count 4.82 10^6/uL Normal 4.18-5.48 Hemoglobin 15.4 g/dL Normal 14.0-18.0 Hematocrit 46 % Normal 36-46 Mean Corpuscular Volume 95 fL High 80-94 Mean Corpuscular Hemoglobin 32 pg High 27-31 Mean Corpuscular HGB Conc 34 g/dL Normal 31-36 Red Cell Distribution Width 13 % Normal 10.5-15 Platelet Count 155 10^3/uL Normal 150-450 Mean Platelet Volume 7.9 fL Normal 7.4-10.4 Abs Neutrophils 2.8 10^3/uL Normal 1.5-7.7 Abs Lymphocytes 1.1 10^3/uL Normal 1.0-4.8 Abs Monocytes 0.3 10^3/uL Normal 0-0.8 Abs Eosinophils 0.1 10^3/uL Normal 0-0.6 Abs Basophils 0 10^3/uL Normal 0-0.2 Abs Nucleated RBC 0 10^3/uL Granulocyte % 65.6 % Lymphocyte % 24.5 % Monocyte % 7.2 % Eosinophil % 2.1 % Basophil % 0.6 % Nucleated Red Blood Cells % 0 Basic Metabolic 12/16/2018 [facility] Sodium 139 mmol/L Normal 135-145 Panel [address] [place] [address] [phone] Potassium 4.6 mmol/L Normal 3.5-5.0 Chloride 103 mmol/L Normal 101-111 Co2 Carbon Dioxide 26 mmol/L Normal 22-32 Anion Gap 10 mmol/L Normal 2-11 Glucose 138 mg/dL High 70-100 Blood Urea Nitrogen 14 mg/dL Normal 6-24 Creatinine 0.94 mg/dL Normal 0.67-1.17 BUN/Creatinine Ratio 14.9 Normal 8-20 Calcium 9.5 mg/dL Normal 8.6-10.3 Egfr Non- 83.9 >60 Egfr 101.6 >60 1 1 Because ethnic data is not always readily available, this report includes an eGFR for both -Americans and non- Americans. The National Kidney Disease Education Program (NKDEP) does not endorse the use of the MDRD equation for patients that are not between the ages of 18 and 70, are , have extremes of body size, muscle mass, or nutritional status, or are non- or non-. According to the National Kidney Foundation, irrespective of diagnosis, the stage of the disease is based on the level of kidney function: Stage Description GFR(mL/min/1.73 m(2)) 1 Kidney damage with normal or decreased GFR 90 2 Kidney damage with mild decrease in GFR 60-89 3 Moderate decrease in GFR 30-59 4 Severe decrease in GFR 15-29 5 Kidney failure <15 (or dialysis) Procedures Date Code Description Status 04/13/2019 16033 Sleep Study Unattended,HRT Rate,Oxygen Sat,Resp Completed Effort/Airflow 01/28/2018 63464404 Colonoscopy Completed 09/28/2014 11487885 Colonoscopy Completed 05/29/2011 [id number] Colonoscopy Completed Medical Devices Description No Information Available Encounters Type Date Location Provider Dx Diagnosis Office Visit 04/27/2019 Pulmonology And Regina Brown, G47.33 Obstructive sleep 11:00a [facility] GILBERT FIGUEROA, TRACKMOBILE OPERATOR-SHANIA apnea (adult) [facility] (pediatric) G47.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 R06.83 Snoring Assessments Date Code Description Provider 06/16/2019 G47.33 Obstructive sleep apnea (adult) Regina Brown DNP, RN, TRACKMOBILE OPERATOR-BC (pediatric) 06/16/2019 G47.14 Hypersomnia due to medical Regina Brown DNP, RN, TRACKMOBILE OPERATOR- BC condition 04/27/2019 G47.33 Obstructive sleep apnea (adult) Regina Brown DNP, RN, TRACKMOBILE OPERATOR-BC (pediatric) 04/27/2019 G47.14 Hypersomnia due to medical Regina Brown DNP, RN, TRACKMOBILE OPERATOR- BC condition 04/13/2019 G47.33 Obstructive sleep apnea (adult) Tasia Delgado MD (pediatric) 04/09/2019 R06.83 Snoring Tasia Delgado MD 04/09/2019 R53.83 Other fatigue Tasia Delgado MD 02/23/2019 R53.83 Other fatigue Malinda Ayers, N.P. 02/23/2019 R06.83 Snoring Malinda Ayers, N.P. Plan of Treatment Future Appointment(s):08/10/2019 2:30 pm - Regina Brown DNP, RN, TRACKMOBILE OPERATOR-BC at [facility]06/16/2019 - Regina Brown DNP, RN, TRACKMOBILE OPERATOR- BCG47.33 Obstructive sleep apnea (adult) (pediatric)New Medication:Mandibular Advancement Device - fabricate oral appliance /mandibular advancement device for sleep apnea with needed adjustments. g47.33Comments:Mild. HST 04/13/19: AHI 10 /hour, jacinto oxygen 85% (<90% 0.5 min)On CPAP auto AHI 2.9/hour, normalFollow up:2 monthsRecommendations:Continue PAP device, Benefitting and compliant with treatment. Pt interested in consult for dental appliance MAD ( oral appliance/mandibular advancement device) for camping or when he has not power. Please review list and let us know where to send the study information and referral Cleaning Wipe off mask daily (baby wipe-no scent, or warm water) Clean mask, tubing, filter, and water chamber weekly in mild no scent dish soap and water. Hang to dry. If you have any sleepiness while driving you MUST avoid operating a vehicle or machinery. If you have difficulty with your equipment, or need to replace your mask or hoses, please contact your homecare agency. A weight change of 20 pounds or more may have an effect on your equipment; if you are experiencing problems please call for an appointment. Ifyou have any further questions, please call the [facility] at .G47.14 Hypersomnia due to medical conditionComments:Sometimes medication is needed for the sleepiness will consider at next visit.Recommendations:Should improve with treatment and sleep extension. Try to get up the same time every day and go to bed 15 minutes earlier every 3 nights to extend sleep time gradually. If you have any sleepiness while driving you MUST avoid operating a vehicle or machinery. Pull vehicle over when it is safe, walkaround the car, and take a nap and/or drink coffee. If still drowsy call for someone to drive you home. Functional Status Description No Information Available Mental Status Description No Information Available Referrals Refer to Reason for Referral Status Appt Date [facility] Patient with fatigue and snores. Has been Sent 05/03/2019 diagnosed with apnea in the past, referred for sleep study. [address] [place] [id number] [phone]
--- NOTE | 2019-08-13 21:07 | UC ---
Laceration HPI - HPI Summary HPI Summary: right thumb laceration caught between wall and refrigerator- - History Of Current Complaint Chief Complaint: UCLaceration Stated Complaint: THUMB LAC Time Seen by Provider: 08/13/19 20:59 Hx Obtained From: Patient Laceration Location: Finger - right thumb Mechanism Of Injury: Blunt Trauma Onset/Duration: Sudden Onset, Lasting Hours - 3, Still Present Pain Intensity: 2 Pain Scale Used: 0-10 Numeric Aggravating Factors: Nothing Related History: Dominant Hand Right - Allergies/Home Medications Allergies/Adverse Reactions: Allergies Allergy/AdvReac Type Severity Reaction Status Date / Time loperamide Allergy Severe Hives Verified 08/13/19 20:17 morphine Allergy Severe Headache Verified 08/13/19 20:17 ibuprofen AdvReac GI Upset Verified 08/13/19 20:17 Seasonal Allergies Allergy Runny Nose Uncoded 08/13/19 20:17 PMH/Surg Hx/FS Hx/Imm Hx Previously Healthy: Yes - Surgical History Surgical History: Yes Surgery Procedure, Year, and Place: NERVE RELEASE BOTH ELBOWS, 2001, [facility]. CARPAL TUNNEL RELEASE BILATERALLY, 1999, [facility]. RIGHT KNEE- ARTHROSCOPY-1982. TONSILLECTOMY , RIGHT KNEE, [facility]. APPENDECTOMY, 2006, [facility]. DEVIATED SEPTUM 2013 , [facility] - Family History Known Family History: Positive: Cardiac Disease - [place], Diabetes Family History: No family malignant hyperthermia or anesthesia reaction - Social History Occupation: Employed Full-time Lives: With Family Alcohol Use: Occasionally Alcohol Amount: 3-4 PER WEEK Substance Use Type: None Smoking Status (MU): Never Smoked Tobacco Have You Smoked in the Last Year: No - Immunization History Most Recent Tetanus Shot: unknown Review of Systems All Other Systems Reviewed And Are Negative: Yes Constitutional: Positive: Negative Skin: Positive: Bruising - distal right thumb-3.5 cm total length skin flap brewer surface of distal right thumb, Other Eyes: Positive: Negative ENT: Positive: Negative Respiratory: Positive: Negative Cardiovascular: Positive: Negative Gastrointestinal: Positive: Negative Genitourinary: Positive: Negative Motor: Positive: Negative Neurovascular: Positive: Negative Musculoskeletal: Positive: Negative Neurological: Positive: Negative Psychological: Positive: Negative Is Patient Immunocompromised?: No Physical Exam Triage Information Reviewed: Yes Appearance: Well-Appearing, No Pain Distress, Well-Nourished Vital Signs: Initial Vital Signs Temp 98.3 F 08/13/19 20:14 Pulse 63 08/13/19 20:14 Resp 16 08/13/19 20:14 BP 140/99 08/13/19 20:14 Pulse Ox 98 08/13/19 20:14 Vital Signs Reviewed: Yes Eye Exam: Normal Eyes: Positive: Conjunctiva Clear ENT Exam: Normal ENT: Positive: Normal ENT inspection, Hearing grossly normal. Negative: Trismus , Muffled voice, Hoarse voice Dental Exam: Normal Neck exam: Normal Neck: Positive: Supple, Nontender Respiratory Exam: Normal Respiratory: Positive: Normal breath sounds, No respiratory distress, No accessory muscle use Cardiovascular Exam: Normal Cardiovascular: Positive: RRR, Pulses Normal, Brisk Capillary Refill Musculoskeletal Exam: Normal Musculoskeletal: Positive: Strength Intact, ROM Intact, No Edema Neurological Exam: Normal Neurological: Positive: Alert, Muscle Tone Normal Psychological Exam: Normal Skin: Positive: Other - 3.5 cm total lenth u shaped skin flip distal right thumb palm surface Laceration Repair - Laceration Repair 1 Description: Irregular Laceration Size After Repair: Length (cm) - 3.5, Depth (mm) - 2 Modified For Repair: No Cleansing Completed Via Routine Prep: Yes Irrigation With Pressure Irrigation Device: Yes Closure Material: Skin Adhesive, SteriStrips Laceration Course/Dx - Course/Dx Course Of Treatment: wound well approximated no bleeding--education regarding steri strip and skin glue splint applied patient verbalizes understanding of chcf in good condition no c/o - Diagnosis Provider Diagnosis: Laceration of right thumb without complication Discharge ED - Sign-Out/Discharge Documenting (check all that apply): Patient Departure All imaging exams completed and their final reports reviewed: No Studies - Discharge Plan Condition: Stable Disposition: HOME Patient Education Materials: Skin Adhesive Care (ED), Steristrips (ED) Referrals: Malinda Ayers NP [Primary Care Provider] - If Needed - Billing Disposition and Condition Condition: STABLE Disposition: Home
[2019-08-13] MEDS ORDERED: Benzoin Compound STICK TOPICAL ONE (21:08)
== END 2019-08-13 21:55 | disposition home or self-care (01) ==
LOC: UCEAST 20:03
DX: S61.011A Laceration without foreign body of right thumb without damage to nail, initial encounter (principal); Z88.5 Allergy status to narcotic agent; Z91.09 Other allergy status, other than to drugs and biological substances; Z88.8 Allergy status to other drugs, medicaments and biological substances; W23.0XXA Caught, crushed, jammed, or pinched between moving objects, initial encounter; Y92.9 Unspecified place or not applicable
CPT/HCPCS: 12002; 99212; G0463

== ENCOUNTER 2019-09-21 13:08 | Emergency (ER) | payer BC ==
--- OUTSIDE RECORDS SUMMARY | 2019-09-21 13:28 | XMS REPORT | Continuity of Care Document ---
:1965 External Reference #:[id number] Author Name Regina Brown DNP, RN, TAX ATTORNEY-BC (transmitted by agent of provider Elena Andrade) Address [address], [address] [place] [address] Care Team Providers Name Role Phone Malinda Ayers NP - Family Care Team Information Remote Sensing Analyst [phone] Problems Active Problems Provider Date Ulcerative colitis Gina Rios M.D. Onset: 11/27/2010 Obstructive sleep apnea syndrome Regina Brown DNP, RN, TAX ATTORNEY-BC Onset: Note: Mild. HST 04/13/19: AHI 10/hour, jacinto oxygen 85% (<90% 0.5 min) Social History Type Date Description Comments Sex Unknown ETOH Use Drinks Alcoholic on weekends - beer Beverages Occasionally and drinks, 6 - 9 drinks per weekend Tobacco Use Start: Unknown Patient has never smoked Recreational Drug Use Never Used Drugs Smoking Status Reviewed: 08/10/19 Patient has never smoked Exercise Type/Frequency Exercises regularly Weight lifting, running, hikes Allergies, Adverse Reactions, Alerts Active Allergies Reaction Severity Comments Date Imodium RASH & NAUSEA 10/23/2009 Morphine headache 02/15/2018 Medications Active Medications SIG Qnty Indications Ordering Date Provider Modafinil 1/2 tab in am and 30tabs G47.14 Regina Brown, 08/10/2019 200mg 1/2 tab before [facility], TAX ATTORNEY-BC Tablets noon, if needed as directed Mandibular fabricate oral 1units G47.33 Regina Brown, 06/16/2019 Advancement Device appliance GILBERT FIGUEROA, TAX ATTORNEY-BC /mandibular Device advancement device for sleep apnea with needed adjustments. g47.33 Fluticasone Instill 2 Sprays 16units Malinda Ayers, 11/26/2018 Propionate Into Each Nostril N.P. Once Every Day 50mcg/Act Suspension Balsalazide Take Three Capsules 180caps K51.90 Malinda Ayers, 08/29/2018 Disodium By Mouth Twice A N.P. 750mg Day Capsules Clonazepam 1 by mouth as 30tabs F41.9 Malinda Ayers, 10/16/2016 1mg needed for sleep N.P. Tablets Claritin 1 tablet daily qd 30caps Malinda Ayers, 10mg (seasonal) N.P. Capsules Immunizations CPT Code Status Date Vaccine Reaction Lot # [id number] Given 07/03/2017 Influenza Virus Vaccine, Quadrivalent, Split, Preservative Free [id number] Given 08/05/2016 Measles Mumps And Rubella no immediate reaction [id number] MMR [id number] Given 06/23/2016 Measles Mumps And Rubella no reaction noted .. [id number] MMR [id number] Given 02/22/2014 Tdap - [id number] Tetanus/Diptheria/Acellular Pertussis [id number] Given 08/01/2009 Influenza Virus Vaccine, Pandemic Formulation [id number] Given 08/01/2009 Administration Swine Flu Shot Vital Signs Date Vital Result Comment 08/10/2019 2:31pm Height 68.75 inches 5'8.75" Weight 190.00 lb Heart Rate 59 /min BP Systolic 118 mmHg BP Diastolic 72 mmHg O2 % BldC Oximetry 97 % BMI (Body Mass Index) 28.3 kg/m2 06/16/2019 8:21am Height 68.75 inches 5'8.75" Weight 191.50 lb Heart Rate 64 /min BP Systolic Sitting 136 mmHg Lue reg cuff BP Diastolic Sitting 86 mmHg Lue reg cuff Respiratory Rate 16 /min O2 % BldC Oximetry 96 % On Ra BMI (Body Mass Index) 28.5 kg/m2 Results Description No Information Available Procedures Date Code Description Status 04/13/2019 21127 Sleep Study Unattended,HRT Rate,Oxygen Sat,Resp Completed Effort/Airflow 01/28/2018 17134991 Colonoscopy Completed 09/28/2014 05472820 Colonoscopy Completed 05/29/2011 22174134 Colonoscopy Completed Medical Devices Description No Information Available Encounters Type Date Location Provider Dx Diagnosis Office Visit 06/16/2019 [facility] Regina Brown, G47.33 Obstructive sleep 8:30a [facility], TAX ATTORNEY-BC apnea (adult) [facility] (pediatric) G47.14 Hypersomnia due to medical condition Office Visit 04/27/2019 Pulmonology And Regina G47.33 Obstructive sleep 11:00a [facility] Brown RN, apnea (adult) [facility] TAX ATTORNEY-BC (pediatric) G47.14 Hypersomnia due to medical condition Office Visit 04/09/2019 9:00a [facility] Sleep Tasia Delgado, R06.83 [facility] R53.83 Other fatigue Office Visit 02/23/2019 10:00a [facility] Internal Malinda Ayers, R53.83 Other fatigue Medicine - [facility] R06.83 Snoring Assessments Date Code Description Provider 08/10/2019 G47.33 Obstructive sleep apnea (adult) Regina Brown DNP RN, TAX ATTORNEY-BC (pediatric) 08/10/2019 G47.14 Hypersomnia due to medical Regina Brown DNP RN, TAX ATTORNEY- BC condition 08/10/2019 G47.00 Insomnia, unspecified Regina Brown DNP, RN, TAX ATTORNEY-BC 08/10/2019 R14.0 Abdominal distension (gaseous) Regina Brown DNP RN, TAX ATTORNEY-BC 06/16/2019 G47.33 Obstructive sleep apnea (adult) Regina Brown DNP RN, TAX ATTORNEY-BC (pediatric) 06/16/2019 G47.14 Hypersomnia due to medical Regina Brown DNP RN, TAX ATTORNEY- BC condition 04/27/2019 G47.33 Obstructive sleep apnea (adult) Regina Brown DNP RN, TAX ATTORNEY-BC (pediatric) 04/27/2019 G47.14 Hypersomnia due to medical Regina Brown DNP, RN, TAX ATTORNEY- BC condition 04/13/2019 G47.33 Obstructive sleep apnea (adult) Tasia Delgado MD (pediatric) 04/09/2019 R06.83 Snoring Tasia Delgado MD 04/09/2019 R53.83 Other fatigue Tasia Delgado MD 02/23/2019 R53.83 Other fatigue Malinda Ayers, N.P. 02/23/2019 R06.83 Snoring Malinda Ayers N.P. Plan of Treatment Future Appointment(s):10/18/2019 3:00 pm - Regina Brown DNP, RN, TAX ATTORNEY-BC at [facility]08/10/2019 - Regina Brown DNP, RN, TAX ATTORNEY- BCG47.33 Obstructive sleep apnea (adult) (pediatric)New Orders:[facility], Ordered: 08/10/19Comments:Mild. HST 04/13/19: AHI 10/hour, jacinto oxygen 85% (< 90% 0.5 min)Follow up:1 month 30 min (insomnia)Recommendations:Continue PAP device, Benefitting and compliant with treatment. Adjustment of CPAP to 5-7 cm. please call if problems persist. Cleaning Wipe off mask daily (baby wipe-no [...] experiencing problems please call for an appointment. If you have any further questions, please call the [facility] at [phone].G47.14 Hypersomnia due to medical conditionNew Medication :Modafinil 200 mg - 1/2 tab in am and 1/2 tab before noon, if needed as directedFollow up:1 month 30 minRecommendations:Reduce caffeine as may disrupt sleep, cut back to 50% then Decaf. Do not mix caffeinated coffee/drinks with modafinil due to drug to caffeine side effects. Read package insert and report any side effects.G47.00 Insomnia, unspecifiedFollow up:1 month 30 minutesRecommendations:Keep sleep diary Look up Edmund's 3P model for insomnia and Perlis 4-P model adapted from Edmund. try to be consistent with 5 -530 AM wake-up timeR14.0 Abdominal distension (gaseous)Recommendations:May try OTC simethicone (gas-ex) Adjustment of CPAP 5-7 cm, may need BiPAP Please let us know if the bloating/sleepiness does not improve Functional Status Description No Information Available Mental Status Description No Information Available Referrals Refer to Reason for Referral Status Appt Date [facility] Patient with fatigue and snores. Has been Sent 05/03/2019 diagnosed with apnea in the past, referred for sleep study. [address] [place] [phone]
[2019-09-21 13:38] LABS: ABS Basophils 0.1 10^3/ul (0-0.2); ABS Eosinophils 0.2 10^3/ul (0-0.6); ABS Lymphocytes 1.1 10^3/ul (1.0-4.8); ABS Monocytes 0.3 10^3/ul (0-0.8); ABS Neutrophils 2.9 10^3/ul (1.5-7.7); Eosinophil % 3.5 %; Hematocrit 43 % (42-52); Hemoglobin 15.2 g/dL (14.0-18.0); Mean Corpuscular HGB Conc 35 g/dL (31-36); Mean Corpuscular Hemoglobin 33 pg (27-31); Mean Corpuscular Volume 94 fL (80-94); Mean Platelet Volume 7.4 fL (7.4-10.4); Nucleated Red Blood Cells % 0.1; Platelet Count 174 10^3/uL (150-450); Red Blood Count 4.58 10^6 /uL (4.18-5.48); Red Cell Distribution Width 13 % (10-15); White Blood Count 4.5 10^3/uL (3.5-10.8)
[2019-09-21 13:44] LABS: INR 0.94 (0.82-1.09)
[2019-09-21 14:04] LABS: Albumin 4.5 g/dL (3.2-5.2); Albumin/Globulin Ratio 1.6 (1-3); Calcium 9.3 mg/dL (8.6-10.3); EGFR African American 94.2 (>60); EGFR Non-African American 77.9 (>60); Globulin 2.9 g/dL (2-4); Total Bilirubin 0.6 mg/dL (0.2-1.0); Total Protein 7.4 g/dL (6.4-8.9)
[2019-09-21 14:49] LABS: Potassium 4.1 mmol/L (3.5-5.0)
--- NOTE | 2019-09-21 15:24 | ED ---
HPI Cardiac - HPI Summary HPI Summary: 54 y/o male presented to [facility] complaining of tightness in his chest and SOB present daily in intermittent episodes for months followed by an episode of dizziness today. Symptoms are worsened by exertion and radiate to the center of the back. Pt denies cardiac Hx,and Hx of blood clots, diabetes, or HTN. He has a Hx of a hiatal hernia from 1.5 years ago and notes that since then he has had complications where he cannot belch or pass gas, and often feels bloated. He has a Hx of ocular migraines, one of which he experienced in the room, that occur when he is dehydrated or stressed. He does not smoke and had a cardiac stress test 10 years ago in [place]. - History of Current Complaint Chief Complaint: EDChestPainROMI Stated Complaint: CHEST TIGHTNESS AND SOB PER PT Time Seen by Provider: 09/21/19 13:29 Hx Obtained From: Patient Onset/Duration: Started Weeks Ago, Still Present Timing: Intermittent Current Severity: None Pain Intensity: 0 Pain Scale Used: 0-10 Numeric Chest Pain Radiates To:: Back - center Character: Pressure/Squeezing Aggravating Factor(s): Exertion Alleviating Factor(s): Rest Associated Signs and Symptoms: Positive: Shortness of Breath. Negative: Chest Pain - Additional Pertinent History Primary Care Physician: ZORAN - Allergy/Home Medications Allergies/Adverse Reactions: Allergies Allergy/AdvReac Type Severity Reaction Status Date / Time loperamide Allergy Severe Hives Verified 09/21/19 13:19 morphine Allergy Severe Headache Verified 09/21/19 13:19 ibuprofen AdvReac GI Upset Verified 09/21/19 13:19 Seasonal Allergies Allergy Runny Nose Uncoded 09/21/19 13:19 PMH/Surg Hx/FS Hx/Imm Hx Endocrine/Hematology History: Denies: Hx Diabetes, Hx Thyroid Disease Cardiovascular History: Reports: Hx Angina Denies: Hx Coronary Artery Disease, Hx Hypercholesterolemia, Hx Hypertension , Hx Myocardial Infarction, Hx Pacemaker/ICD, Hx Valvular Heart Disease, Other Cardiovascular Problems/Disorders Respiratory History: Reports: Hx Sleep Apnea - Diagnosed with mild sleep apnea Denies: Hx Asthma, Hx Chronic Obstructive Pulmonary Disease (COPD), Other Respiratory Problems/Disorders GI History: Reports: Hx Gastroesophageal Reflux Disease - on medication, Hx Hiatal Hernia, Hx Irritable Bowel, Other GI Disorders - ULCERATIVE COLITIS, history of erosive esophagitis Denies: Hx Ulcer History: Denies: Hx Renal Disease, Other Problems/Disorders Musculoskeletal History: Reports: Hx Arthritis - Right knee, Other Musculoskeletal History - bilateral carpal tunnel Denies: Hx Rheumatoid Arthritis, Hx Osteoporosis Sensory History: Reports: Hx Contacts or Glasses - CONTACTS & GLASSES Denies: Hx Hearing Aid Opthamlomology History: Reports: Hx Contacts or Glasses - CONTACTS & GLASSES Neurological History: Reports: Other Neuro Impairments/Disorders - bilateral ulnar nerve decompression Psychiatric History: Denies: Hx Panic Disorder - Surgical History Surgery Procedure, Year, and Place: NERVE RELEASE BOTH ELBOWS, 2001, [place]. CARPAL TUNNEL RELEASE BILATERALLY, 1999, [facility]. RIGHT KNEE- ARTHROSCOPY-1982. TONSILLECTOMY , RIGHT KNEE, [facility]. APPENDECTOMY, 2006, [facility]. DEVIATED SEPTUM 2013 , [facility] Hx Anesthesia Reactions: Yes - NAUSEA WITH GENERAL ANESTHESIA - Immunization History Date of Influenza Vaccine: 2015 Infectious Disease History: No Infectious Disease History: Denies: Hx Hepatitis, Hx Human Immunodeficiency Virus (HIV), History Other Infectious Disease, Traveled Outside the [place] in Last 30 Days - Family History Known Family History: Positive: Cardiac Disease - [place], Diabetes Family History: No family malignant hyperthermia or anesthesia reaction - Social History Alcohol Use: Occasionally Alcohol Amount: 3-4 PER WEEK Substance Use Type: Reports: None Smoking Status (MU): Never Smoked Tobacco Have You Smoked in the Last Year: No Review of Systems Negative: Chest Pain Positive: Shortness Of Breath Neurological: Other - dizziness Positive: Headache - ocular migraine in room All Other Systems Reviewed And Are Negative: Yes Physical Exam - Summary Physical Exam Summary: Constitutional: Well-developed, Well-nourished, Alert. (-) Distressed Skin: Warm, Dry HENT: Normocephalic; Atraumatic Eyes: Conjunctiva normal Neck: Musculoskeletal ROM normal neck. (-) JVD, (-) Stridor, (-) Tracheal deviation Cardio: Rhythm regular, rate normal, Heart sounds normal; Intact distal pulses; The pedal pulses are 2+ and symmetric. Radial pulses are 2+ and symmetric. (-) Murmur Pulmonary/Chest wall: Effort normal. (-) Respiratory distress, (-) Wheezes, (-) Rales Abd: Soft, (-) tenderness, (-) Distension, (-) Guarding, (-) Rebound Musculoskeletal: (-) Edema Lymph: (-) Cervical adenopathy Neuro: Alert, Oriented x3 Psych: Mood and affect Normal Triage Information Reviewed: Yes Vital Signs On Initial Exam: Initial Vitals Temp Pulse Resp BP Pulse Ox 98.1 F 65 16 146/99 98 09/21/19 13:15 09/21/19 13:15 09/21/19 13:15 09/21/19 13:15 09/21/19 13:15 Vital Signs Reviewed: Yes Procedures - Sedation Patient Received Moderate/Deep Sedation with Procedure: No Diagnostics - Vital Signs Vital Signs Temp Pulse Resp BP Pulse Ox 09/21/19 13:15 98.1 F 65 16 146/99 98 - Laboratory Lab Results: Lab Results 09/21/19 09/21/19 09/21/19 Range/Units 13:22 13:22 13:22 WBC 4.5 (3.5-10.8) 10^3/uL RBC 4.58 (4.18-5.48) 10^6 /uL Hgb 15.2 (14.0-18.0) g/dL Hct 43 (42-52) % MCV 94 (80-94) fL MCH 33 H (27-31) pg MCHC 35 (31-36) g/dL RDW 13 (10-15) % Plt Count 174 (150-450) 10^3/uL MPV 7.4 (7.4-10.4) fL Neut % (Auto) 64.2 % Lymph % (Auto) 25.0 % Banks % (Auto) 5.8 % Eos % (Auto) 3.5 % Baso % (Auto) 1.5 % Absolute Neuts (auto) 2.9 (1.5-7.7) 10^3/ul Absolute Lymphs (auto) 1.1 (1.0-4.8) 10^3/ul Absolute Monos (auto) 0.3 (0-0.8) 10^3/ul Absolute Eos (auto) 0.2 (0-0.6) 10^3/ul Absolute Basos (auto) 0.1 (0-0.2) 10^3/ul Absolute Nucleated RBC 0.0 10^3/ul Nucleated RBC % 0.1 INR (Anticoag Therapy) 0.94 (0.82-1.09) Sodium 138 (135-145) mmol/L Potassium 4.1 (3.5-5.0) mmol/L Chloride 103 (101-111) mmol/L Carbon Dioxide 28 (22-32) mmol/L Anion Gap 7 (2-11) mmol/L BUN 15 (6-24) mg/dL Creatinine 1.00 (0.67-1.17) mg/dL Est GFR ( Amer) 94.2 (>60) Est GFR (Non-Af Amer) 77.9 (>60) BUN/Creatinine Ratio 15.0 (8-20) Glucose 119 H (70-100) mg/dL Calcium 9.3 (8.6-10.3) mg/dL Total Bilirubin 0.60 (0.2-1.0) mg/dL AST 19 (13-39) U/L ALT 13 (7-52) U/L Alkaline Phosphatase 65 (34-104) U/L Troponin I 0.00 (<0.03) ng/mL Total Protein 7.4 (6.4-8.9) g/dL Albumin 4.5 (3.2-5.2) g/dL Globulin 2.9 (2-4) g/dL Albumin/Globulin Ratio 1.6 (1-3) Result Diagrams: 09/21/19 13:22 09/21/19 13:22 Lab Statement: Any lab studies that have been ordered have been reviewed, and results considered in the medical decision making process. - Radiology cxr Radiology Interpretation Completed By: Radiologist Summary of Radiographic Findings: IMPRESSION: No acute cardiopulmonary process by radiograph. This report was reviewed by the ED physician. - EKG 1309 Cardiac Rate: NL EKG Rhythm: Sinus Rhythm Summary of EKG Findings: NSR at 66bpm, anterolateral ST depression also noted on prior ECG dated 12/13/18. Dr. Hall has reviewed and interpreted this EKG Disposition - Course Course Of Treatment: 54 y/o male presented to [facility] complaining of tightness in his chest and SOB present daily in intermittent episodes for months followed by an episode of dizziness today. Symptoms are worsened by exertion and radiate to the center of the back. Pt denies cardiac Hx,and Hx of blood clots, diabetes, or HTN. He has a Hx of a hiatal hernia from 1.5 years ago and notes that since then he has had complications where he cannot belch or pass gas, and often feels bloated. Exam was normal. Bloodwork showed MCH H and Glc H. EKG showed NSR at 66bpm, anterolateral ST depression also noted on prior ECG dated 12/13/18. X-ray chest showed no acute cardiopulmonary process by radiograph. Pt was diagnosed with chest pain and discharged to home. - Diagnoses Provider Diagnoses: Chest pain Discharge ED - Sign-Out/Discharge Documenting (check all that apply): Patient Departure - dc - Discharge Plan Condition: Stable Disposition: HOME Patient Education Materials: Chest Pain (ED) Referrals: Malinda Ayers NP [Primary Care Provider] - Paolo Miles MD [Medical Doctor] - Additional Instructions: Follow up with your primary care physician as well as Dr. Miles, transportation dispatch manager, in 1-2 days. If you experience new or worsening symptoms please return to the ER. - Attestation Statements Document Initiated by Scribe: Yes Documenting Scribe: Anam Chatman Provider For Whom Scribe is Documenting (Include Credential): Taran Hall DO Scribe Attestation: Anam Barker, scribed for Taran Hall DO on 09/21/19 at 1756. Status of Scribe Document: Ready
[2019-09-21 17:10] VITALS: BP 119/84
== END 2019-09-21 17:09 | disposition home or self-care (01) ==
LOC: ED 13:08
DX: R07.89 Other chest pain (principal); R06.02 Shortness of breath; R42 Dizziness and giddiness; G43.B0 Ophthalmoplegic migraine, not intractable; K21.9 Gastro-esophageal reflux disease without esophagitis; Z88.6 Allergy status to analgesic agent; Z88.5 Allergy status to narcotic agent; Z88.8 Allergy status to other drugs, medicaments and biological substances; Z91.09 Other allergy status, other than to drugs and biological substances
CPT/HCPCS: 36415; 71045; 80053; 84484; 85025; 85610; 93005; 99282

== ENCOUNTER 2022-07-15 07:30 | Observation (INO) ==
[~2022-07-15 07:30] MED LIST changes: -Buffered Lidocaine 0.9% SYRIN* 5 ML/SYR SYRINGE INTRADERM ONE; +Buffered Lidocaine 1% SYRIN 1 ml INTRADERM ONE; +HYDROmorphone 1 MG/1 ML SYRINGE IV PRN; +Lactated Ringers 1000 ml BAG 1,000 ML IV SCH; -Metoclopramide TAB* 10 MG PO ONE; +Naloxone 0.4 mg VIAL 0.4 mg/ml 1 ml VIAL IV PRN; +Prochlorperazine 5 mg/ml 2 ml VIAL (10 mg) IV PRN; -Sodium Citrate/Citric Acid* 15 ML UDC PO ONE
[2022-07-15] MEDS ORDERED: ceFAZolin 2 GM in NS PREMIX 2 GM/100 ML BAG IVPB ONE (12:32)
[2022-07-15] MEDS ORDERED: ROPIVACAINE 5 MG/ML 30 ML BTL (0.5%) ONE (13:59)
[2022-07-15] MEDS ORDERED: fentaNYL 250 mcg/5 ml 50 MCG/ML 5 ml VIAL (250 MCG) ONE (14:00)
[2022-07-15] MEDS ORDERED: Midazolam 2 mg/2 ml VIAL 1 mg/ml 2 ml VIAL (2 mg) ONE ×2 (14:00→14:57)
[2022-07-15] MEDS ORDERED: Phenylephrine IV 10 MG/ML 1 ml VIAL ONE (14:02)
[2022-07-15] MEDS ORDERED: Lidocaine 2% PF 5 ML VIAL ONE (14:02)
[2022-07-15] MEDS ORDERED: Dexamethasone IV 4 MG/ML VIAL 1 ml VIAL ONE (14:02)
[2022-07-15] MEDS ORDERED: Ondansetron 4 mg VIAL 2 MG/ML 2 ml VIAL ONE (14:02)
[2022-07-15] MEDS ORDERED: Propofol 10 MG/ML 20 ML BTL ONE ×4 (14:02→16:41)
[2022-07-15] MEDS ORDERED: Glycopyrrolate IV 0.2 MG/ML 1 ML VIAL ONE (14:59)
[2022-07-15] MEDS ORDERED: Ropivacaine 5 MG/ML 20 ML VIAL 0.5% (100 MG) ONE (15:24)
[2022-07-15] MEDS ORDERED: Lactulose 30 ml UDC PO PRN (16:24)
[2022-07-15] MEDS ORDERED: Ondansetron 4 mg VIAL 2 MG/ML 2 ml VIAL IV PRN (16:24)
[2022-07-15] MEDS ORDERED: Ondansetron ODT 4 mg TAB 4 MG TAB PO PRN (16:24)
[2022-07-15] MEDS ORDERED: Morphine 2 MG/ML SYRINGE IV PRN (16:24)
[2022-07-15] MEDS ORDERED: Magnesium Hydroxide LIQ 30 ML UDC PO PRN (16:24)
[2022-07-15] MEDS ORDERED: ceFAZolin 1 GM ADVAN 1 GM in NS 0.9% 50 ML 50 ML IVPB SCH (17:00)
[2022-07-15] MEDS: Lactated Ringers 1000 ml BAG 1,000 ML IV SCH (19:10)
[2022-07-15] MEDS: Magnesium Hydroxide LIQ 30 ML UDC PO SCH (20:22)
[2022-07-15] MEDS: ceFAZolin 1 GM ADVAN 1 GM in NS 0.9% 50 ML 50 ML IVPB SCH (23:47)
[2022-07-16] MEDS: ceFAZolin 1 GM ADVAN 1 GM in NS 0.9% 50 ML 50 ML IVPB SCH (05:40)
[2022-07-16] MEDS: Lactated Ringers 1000 ml BAG 1,000 ML IV SCH (06:25)
[2022-07-16 06:58] LABS: Hematocrit 38 % (42-52); Hemoglobin 13.3 g/dL (14.0-18.0); Mean Platelet Volume 7.9 fL (7.4-10.4); Platelet Count 147 10^3/uL (150-450)
[2022-07-16 07:15] LABS: Calcium 8.6 mg/dL (8.6-10.3); eGFR CKD-EPI 91.6 (>60)
[2022-07-16] MEDS: Magnesium Hydroxide LIQ 30 ML UDC PO SCH (08:49)
[2022-07-16] MEDS ORDERED: Mesalamine 1.2 gm TAB (NF) PO SCH (09:00)
[2022-07-16] MEDS ORDERED: Vitamin THERAPEUTIC TAB PO SCH (09:00)
[2022-07-16 11:06] VITALS: BP 120/65
== END 2022-07-16 13:35 | disposition home or self-care (01) ==
LOC: AA 12:10 → INTOOBSV 12:10 → SSU 16:24
PROVIDERS: ADMIT Orthopaedic Surgery Adult Reconstructive Orthopaedic Surgery; ATTEND Orthopaedic Surgery Adult Reconstructive Orthopaedic Surgery